=== PATIENT | female | born 1975 | race African-American/Black ===

== ENCOUNTER 2018-10-14 14:35 | Emergency (ER) | payer MEDICAID ==
[~2018-10-14] VITALS: Ht 165.1 cm; Wt 85.0 kg
[2018-10-14 14:36] VITALS: Ht 165.1 cm; Wt 85.0 kg
[2018-10-14] MEDS ORDERED: KEFLEX500 MG PO (15:19)
[2018-10-14] MEDS ORDERED: TORADOL10 MG PO (15:19)
[2018-10-14 15:51] VITALS: BP 119/73
== END 2018-10-14 15:51 | disposition home or self-care (01) ==
LOC: D.ER 14:35
DX: S69.91XA Unspecified injury of right wrist, hand and finger(s), initial encounter (principal); X58.XXXA Exposure to other specified factors, initial encounter; Y93.89 Activity, other specified; Y92.89 Other specified places as the place of occurrence of the external cause